=== PATIENT | male | born 1960 | race Caucasian/White ===

== ENCOUNTER 2016-12-23 13:03 | Emergency (ER) | payer SELFPAY ==
[~2016-12-23] VITALS: Ht 172.7 cm; Wt 77.1 kg
[2016-12-23 13:16] VITALS: BP 151/77
[2016-12-23] MEDS ORDERED: DIPHTH,PERTUSS(ACELL),TET TOX 0.5 ML DISP.SYRIN. VAX IM ONE (13:30)
[2016-12-23] MEDS ORDERED: cefTRIAXone IM 1 GM VIAL IM ONE (13:30)
[2016-12-23] MEDS ORDERED: oxyCODONE/APAP 5/325 1 TAB TABLET PO ONE (13:30)
--- NOTE | 2016-12-23 13:51 | PHYS DOC ---
Past Medical History Past Medical History: High Cholesterol, Hypotension, Other Additional Past Medical Histor: RA Past Surgical History: No Surgical History Alcohol Use: Occasionally Drug Use: None Adult General Chief Complaint Chief Complaint: ABSCESS HPI HPI Patient is a 56 year old male presenting to the emergency department for evaluation of left knee abscess that has been getting worse. Patient says that 2 weeks ago he fell in a ditch and scratches left knee and it started getting swollen afterwards. Is ignoring it but then went to go see his primary care provider on December 18 and was prescribed Bactrim and [place] and says that the swelling and pain has been getting worse. He says it started draining pus this morning. He does not have any pain in his joint per se rather the pain is all in the skin. His tetanus is not up-to-date so it was updated here. He has rheumatoid arthritis and is on prednisone and another Immuno modulator I do not recognize. Review of Systems Review of Systems Constitutional: Denies fever or chills [] Respiratory: Denies cough or shortness of breath [] Cardiovascular: No additional information not addressed in HPI [] GI: Denies abdominal pain, nausea, vomiting, bloody stools or diarrhea [] Musculoskeletal: Denies back pain or joint pain [] Integument: + redness, swelling Neurologic: Denies headache, focal weakness or sensory changes [] Current Medications Current Medications Current Medications Medications (Trade) Dose Ordered Sig/Sonja Start Time Stop Time Status Last Admin Dose Admin Ceftriaxone Sodium (Rocephin Im) 1 gm 1X ONCE 12/23/16 13:30 12/23/16 13:31 DC 12/23/16 13:35 1 GM Diphtheria/ Tetanus/Acell Pertussis (Boostrix) 0.5 ml ONCE ONCE 12/23/16 13:30 12/23/16 13:31 DC 12/23/16 13:37 0.5 ML Oxycodone/ Acetaminophen (Percocet 5/325) 2 tab 1X ONCE 12/23/16 13:30 12/23/16 13:31 DC 12/23/16 13:35 2 TAB Allergies Allergies Allergies Coded Allergies Type Severity Reaction Last Updated Verified No Known Drug Allergies 12/23/16 No Physical Exam Physical Exam Constitutional: Well developed, well nourished, no acute distress, non-toxic appearance. [] Cardiovascular:Heart rate regular rhythm, no murmur [] Lungs & Thorax: Bilateral breath sounds clear to auscultation [] Extremities: Left knee with approximate 4 x 4 cm indurated area and surrounding 6 x 6 cm cellulitis. There is some spontaneous drainage inferiorly. Neurologic: Alert and oriented X 3, normal motor function, normal sensory function, no focal deficits noted. [] Current Patient Data Vital Signs Vital Signs Date Time Temp Pulse Resp B/P (MAP) Pulse Ox O2 Delivery O2 Flow Rate FiO2 12/23/16 13:35 96 Room Air 12/23/16 13:16 98.1 91 18 151/77 (101) 98.1 EKG EKG [] Radiology/Procedures Radiology/Procedures Indication: Pain and swelling to the left knee. Time of exam 1332 hours. 3 views left knee demonstrate prepatellar soft tissue swelling. The alignment is normal. The joint spaces are well maintained. The articular surfaces are smooth. No fractures are seen. There is no effusion. Impression: Prepatellar swelling. No other significant abnormality is seen. DICTATED and SIGNED BY: JONO SINGLETON MD DATE: 12/23/16 1346 Impressions: Indication: abscess Procedure: The patient was positioned appropriately. Local anesthesia was injected approximately 8 mL of 1% lidocaine with epinephrine. An incision was then made over the apex of the lesion and very large amount of purulence material was expressed. The drainage cavity was irrigated and packed with sterile gauze. The patients tetanus status updated as needed. The patient tolerated the procedure well. Complications: none. Course & Med Decision Making Course & Med Decision Making Patient has a very large subcutaneous left knee abscess that was drained and packed appropriately. Patient does not have any joint involvement based off history and physical exam. I will refer patient to general surgeon based off the large degree of pus drained and that he is immunosuppressed. Patient aware and agreeable with plan for discharge and verbalized understanding of the need for short-term follow-up in the strict ER return precautions discussed worsening pain fevers or other general concerns. Dragon Disclaimer Dragon Disclaimer This electronic medical record was generated, in whole or in part, using a voice recognition dictation system. Departure Departure Impression: Primary Impression: Cellulitis of knee, left Additional Impression: Abscess of left knee Disposition: 01 HOME, SELF-CARE Condition: GOOD Referrals: EDWIN LUIS MD (PCP) JONO CALLE MD Patient Instructions: Abscess, Care After Scripts Cephalexin (KEFLEX) 500 Mg Capsule 1 CAP PO BID, #14 CAP Prov: NORMAN STACY DO 12/23/16 Oxycodone/Apap 5-325 (PERCOCET 5-325 MG TABLET) 1 Each Tablet 1 TAB PO PRN Q6HRS Y for PAIN, #14 TAB 0 Refills Prov: NORMAN STACY DO 12/23/16 Sulfamethoxazole/Trimethoprim (BACTRIM 400-80 MG TABLET) 1 Each Tablet 1 TAB PO BID, #14 TAB Prov: NORMAN STACY DO 12/23/16 Problem Qualifiers NORMAN STACY DO Dec 23, 2016 13:51
[2016-12-23] MEDS ORDERED: SULF1TAB23 PO (14:27)
[2016-12-23] MEDS ORDERED: OXYC-323 PO (14:27)
[2016-12-23] MEDS ORDERED: CEPH-264 PO (14:27)
== END 2016-12-23 15:10 | disposition home or self-care (01) ==
LOC: ER 14:40
DX: L03.116 Cellulitis of left lower limb (principal); E78.00 Pure hypercholesterolemia, unspecified; I95.9 Hypotension, unspecified; M06.9 Rheumatoid arthritis, unspecified; Z79.52 Long term (current) use of systemic steroids
CPT/HCPCS: 10060; 73562; 90471; 90715; 96372; 99284; J0696

== ENCOUNTER 2017-05-07 14:06 | Emergency (ER) | payer OTHER ==
[~2017-05-07] VITALS: Ht 175.3 cm; Wt 81.6 kg
[~2017-05-07 14:06] MED LIST: CEPH-264 PO; OXYC-323 PO; SULF1TAB23 PO
[2017-05-07] MEDS ORDERED: LIDOCAINE/EPI/TETRACAINE TOPICAL GEL 3 ML. TP ONE (14:30)
[2017-05-07] MEDS ORDERED: LIDOCAINE 2%/EPI 1:100,000 20 ML VIAL. IJ ONE (14:30)
[2017-05-07 14:45] VITALS: BP 155/101
--- NOTE | 2017-05-07 16:25 | PHYS DOC ---
Past Medical History Past Medical History: Arthritis, High Cholesterol, Hypertension, Other Additional Past Medical Histor: RA, OSTEOPOROSIS Past Surgical History: No Surgical History Alcohol Use: Occasionally Drug Use: None Adult General Chief Complaint Chief Complaint: LACERATION/AVULSION HPI HPI Patient is a 57 year old male who presents with left mitchell laceration after being pinned btwn a golf cart and a pole Review of Systems Review of Systems Constitutional: Denies fever or chills [] Musculoskeletal: Denies back pain or joint pain [] Integument: left mitchell laceration Neurologic: Denies headache, focal weakness or sensory changes [] Current Medications Current Medications Current Medications Medications (Trade) Dose Ordered Sig/Sonja Start Time Stop Time Status Last Admin Dose Admin Lidocaine/ Epinephrine (Let Topical) 3 ml 1X ONCE 05/07/17 14:30 05/07/17 14:31 DC 05/07/17 14:50 3 ML Lidocaine/ Epinephrine (Xylocaine 2%-Epi 1:100,000) 20 ml 1X ONCE 05/07/17 14:30 05/07/17 14:31 DC 05/07/17 14:50 20 ML Allergies Allergies Allergies Coded Allergies Type Severity Reaction Last Updated Verified No Known Drug Allergies 12/23/16 No Physical Exam Physical Exam Constitutional: Well developed, well nourished, no acute distress, non-toxic appearance. [] Skin: Warm, dry, left mitchell with laceration approx. 6 cm long, there is no tendon involvement. Full range of motion to the left lower extremity. +2 left pedal pulse. Cap refill less than 2 seconds left toes Back: No tenderness, no CVA tenderness. [] Extremities: No tenderness, no cyanosis, no clubbing, ROM intact, no edema. [] Neurologic: Alert and oriented X 3, normal motor function, normal sensory function, no focal deficits noted. [] Psychologic: Affect normal, judgement normal, mood normal. [] Current Patient Data Vital Signs Vital Signs Date Time Temp Pulse Resp B/P (MAP) Pulse Ox O2 Delivery O2 Flow Rate FiO2 05/07/17 14:45 98.2 98 18 98 Room Air 98.2 EKG EKG [] Interpretation Time: Indication: Left mitchell laceration Procedure: The patient was placed in the appropriate position and anesthesia around the left solution then lidocaine with epinephrine. The area was then explored for foreign objects, none was found, the laceration was cleaned with 100 ML of normal saline and Betadine. Laceration was closed with as follows-one interrupted suture in the inner side of the laceration and 15 interrupted sutures using 4. 0 Ethilon on the exterior aspect of the laceration. The wound was covered with nonstick dressing. Radiology/Procedures Radiology/Procedures [] Course & Med Decision Making Course & Med Decision Making Pertinent Labs and Imaging studies reviewed. (See chart for details) Patient has left lower extremity laceration that was closed by me as noted in procedures. Tetanus was updated. Wound care and return precautions provided. Discharged in stable condition Dragon Disclaimer Dragon Disclaimer This electronic medical record was generated, in whole or in part, using a voice recognition dictation system. Departure Departure Impression: Primary Impression: Laceration of left lower extremity Disposition: 01 HOME, SELF-CARE Condition: STABLE Referrals: EDWIN LUIS MD (PCP) follow up with your doctor in 7-10 days for suture removal Patient Instructions: Laceration Care, Adult Additional Instructions: You have left lower extremity laceration, keep it clean and dry. Apply Neosporin to it. Follow-up with your own doctor in 7-10 days for suture removal. Monitor the area for signs and symptoms of infection including but not limited to increased redness to the area, warmth or yellow drainage from the area and return to the ED if they occur. Problem Qualifiers Primary Impression: Laceration of left lower extremity Encounter type: initial encounter Qualified Codes: S81.812A - Laceration without foreign body, left lower leg, initial encounter NAGA EMMANUEL APRN May 07, 2017 16:25
[2017-05-07] MEDS ORDERED: CEPH500T PO (16:55)
== END 2017-05-07 16:35 | disposition home or self-care (01) ==
LOC: ER 14:06
DX: S81.812A Laceration without foreign body, left lower leg, initial encounter (principal); M06.9 Rheumatoid arthritis, unspecified; E78.00 Pure hypercholesterolemia, unspecified; I10 Essential (primary) hypertension; M81.0 Age-related osteoporosis without current pathological fracture; W26.8XXA Contact with other sharp object(s), not elsewhere classified, initial encounter; Y93.89 Activity, other specified; Y92.89 Other specified places as the place of occurrence of the external cause; Y99.8 Other external cause status
CPT/HCPCS: 12032; 99284; J3490